=== PATIENT | male | born 1990 | race Caucasian/White ===

== ENCOUNTER 2024-06-03 14:12 | Inpatient (IN) | payer OTHER ==
[2024-06-03 14:56] VITALS: BMI 28.9
[2024-06-03] MEDS ORDERED: BENZONATATE 200 MG CAPSULE PO PRN (15:31)
[2024-06-03] MEDS ORDERED: ONDANSETRON *ODT* 4 MG TABLET SL PRN (15:31)
[2024-06-03] MEDS ORDERED: BISMUTH SUBSALICYLATE 524 MG/30 ML PO PRN (15:31)
[2024-06-03] MEDS ORDERED: guaiFENesin 600 MG TABLET.ER (FP) PO PRN (15:31)
[2024-06-03] MEDS ORDERED: IBUPROFEN 400 MG TABLET (FP) PO PRN (15:31)
[2024-06-03] MEDS ORDERED: ACETAMINOPHEN 325 MG TABLET (FP) PO PRN (15:31)
[2024-06-03] MEDS ORDERED: POLYETHYLENE GLYCOL (HEALTHYLAX) 3350 17 GM PACKET PO PRN (15:31)
[2024-06-03] MEDS ORDERED: MAGNESIUM HYDROX 2400MG/30ML ORAL SUSPENSION 30 ML CUP PO PRN (15:31)
[2024-06-03] MEDS ORDERED: MAG HYDROX/AL HYDROX/SIMETH 30 ML UNIT-DOSE CUP PO PRN (15:31)
[2024-06-03] MEDS ORDERED: DICYCLOMINE HCL 10 MG CAPSULE PO PRN (15:31)
[2024-06-03] MEDS ORDERED: BENZOCAINE/MENTHOL (CHLORASEPTIC ) LOZENGE MM PRN (15:31)
[2024-06-03] MEDS ORDERED: LOPERAMIDE HCL 2 MG CAPSULE PO PRN (15:31)
[2024-06-03] MEDS ORDERED: NALOXONE (NARCAN) HCL 4 MG/0.1 ML SPRAY NS PRN (15:31)
[2024-06-03] MEDS ORDERED: chlordiazePOXIDE HCL 25 MG CAPSULE PO PRN (15:32)
[2024-06-03] MEDS ORDERED: propRANOLol HCL 10 MG TABLET ONE (15:53)
[2024-06-03] MEDS ORDERED: levETIRAcetam 500 MG TABLET (FP) PO ONE (15:54)
[2024-06-03] MEDS: levETIRAcetam 500 MG TABLET (FP) PO SCH (15:55)
[2024-06-03] MEDS: propRANOLol HCL 10 MG TABLET PO ONE (15:55)
[2024-06-03] MEDS: chlordiazePOXIDE HCL 25 MG CAPSULE PO SCH (17:02)
[2024-06-03] MEDS: NICOTINE POLACRILEX 2 MG GUM BUC PRN (17:11)
[2024-06-03] MEDS: MELATONIN 5 MG TABLETS PO SCH (22:14)
[2024-06-03] MEDS: THIAMINE 100 MG TABLET PO SCH (22:14)
[2024-06-03] MEDS: NICOTINE POLACRILEX 2 MG LOZENGE BC PRN (23:08)
[2024-06-04] MEDS: PRENATAL VITAMINS W/ FOLIC ACID TABLET (FP) PO SCH (09:34)
[2024-06-04] MEDS: METHOCARBAMOL 500 MG TABLET PO PRN (10:21)
[2024-06-04 11:14] LABS: HEMOGLOBIN 13.3 GM/dL (11.7-16.9); MCH 34.1 pg (25.7-33.7); MCHC 34.1 g/dl (32.0-35.9); MEAN CELL VOLUME 100.1 fl (80-96); MEAN PLT VOLUME 8.8 fl (7.5-11.1); PLATELET COUNT 177 10^3/uL (134-434); RBC 3.89 M/mm3 (4.00-5.60); WHITE BLOOD COUNT 3.6 K/mm3 (4.0-10.0)
[2024-06-04 11:17] LABS: POTASSIUM 3.3 mmol/L (3.5-5.1)
[2024-06-04 11:26] LABS: ALBUMIN 3.5 g/dl (3.4-5.0); CALCIUM 9.3 mg/dL (8.5-10.1)
[2024-06-04 11:27] LABS: BLOOD UREA NITROGEN 10.7 mg/dL (7-18)
[2024-06-04 11:30] LABS: BILIRUBIN,TOTAL 1.9 mg/dL (0.2-1); CREATININE 0.6 mg/dL (0.55-1.3); TOT PROT 6.8 g/dl (6.4-8.2)
[2024-06-04] MEDS: POTASSIUM CHLORIDE ORAL LIQUID 20 MEQ/15 ML PO ONE ×2 (15:28→18:12)
[2024-06-04] MEDS: amLODIPine BESYLATE 5 MG TABLET (FP) PO ONE (17:49)
[2024-06-04] MEDS: traZODone HCL 50 MG TABLET (FP) PO SCH (22:07)
[2024-06-05] MEDS: chlordiazePOXIDE HCL 25 MG CAPSULE PO SCH (05:21)
[2024-06-05] MEDS: POTASSIUM CHLORIDE ORAL LIQUID 20 MEQ/15 ML PO SCH (14:19)
[2024-06-06] MEDS ORDERED: chlordiazePOXIDE HCL 10 MG CAPSULE PO PRN
[2024-06-06] MEDS: chlordiazePOXIDE HCL 10 MG CAPSULE PO SCH (05:42)
[2024-06-06] MEDS: IBUPROFEN 600 MG TABLET (FP) PO PRN (09:34)
[2024-06-06 12:28] LABS: POTASSIUM 3.8 mmol/L (3.5-5.1)
[2024-06-06 12:30] LABS: CALCIUM 9.9 mg/dL (8.5-10.1)
[2024-06-06 12:31] LABS: BLOOD UREA NITROGEN 9.8 mg/dL (7-18); MAGNESIUM 1.5 mg/dL (1.8-2.4)
[2024-06-06 12:34] LABS: CREATININE 0.7 mg/dL (0.55-1.3)
[2024-06-06] MEDS: MAGNESIUM OXIDE 400 MG TABLET (FP) PO ONE (15:38)
[2024-06-06] MEDS: METOPROLOL TARTRATE 25 MG TABLET (FP) PO ONE (17:11)
[2024-06-06] MEDS: MAGNESIUM OXIDE 400 MG TABLET (FP) PO SCH (22:25)
[2024-06-07] MEDS: chlordiazePOXIDE HCL 10 MG CAPSULE PO SCH (06:00)
[2024-06-07] MEDS: chlordiazePOXIDE HCL 10 MG CAPSULE PO ONE (10:55)
[2024-06-07] MEDS: NALTREXONE HCL 50 MG TABLET PO ONE (11:55)
[2024-06-08] MEDS: chlordiazePOXIDE HCL 10 MG CAPSULE PO ONE (05:33)
[2024-06-08] MEDS: NALTREXONE HCL 50 MG TABLET PO SCH (09:09)
[2024-06-08 09:34] VITALS: BP 126/90; PULSE 90; RESP 16; TEMP 98.2
== END 2024-06-08 09:34 | disposition home or self-care (01) | DRG 775 ==
LOC: YASAS 14:12 → Y3N 16:10
PROVIDERS: ADMIT Allergy & Immunology; ATTEND Allergy & Immunology
PROC: HZ2ZZZZ Detoxification Services for Substance Abuse Treatment (ICD-10-PCS; principal; 2024-06-03)
DX: F10.230 Alcohol dependence with withdrawal, uncomplicated (principal); F13.230 Sedative, hypnotic or anxiolytic dependence with withdrawal, uncomplicated; F17.210 Nicotine dependence, cigarettes, uncomplicated; F19.24 Other psychoactive substance dependence with psychoactive substance-induced mood disorder; F41.9 Anxiety disorder, unspecified; E87.6 Hypokalemia; G47.00 Insomnia, unspecified; R74.01 Elevation of levels of liver transaminase levels; Z86.69 Personal history of other diseases of the nervous system and sense organs
CPT/HCPCS: 36415; 80048; 80053; 80305; 83735; 84132; 85027; 86780; 93005; 93010